=== PATIENT | female | born 1950 | race Caucasian/White ===

== ENCOUNTER 2021-03-12 09:36 | Emergency (ER) | payer MEDICARE ==
[~2021-03-12] VITALS: Ht 157.5 cm; Wt 68.0 kg
[2021-03-12 09:43] VITALS: BP 141/66
--- NOTE | 2021-03-12 09:47 | NUR ---
AT BEDSIDE FOR EVAL.
--- NOTE | 2021-03-12 10:11 | NUR ---
FLU[employer] REPLACER AT BEDSIDE FOR WALKING BOOT APPLICATION.
--- NOTE | 2021-03-12 10:24 | NUR ---
Patient discharged to home in stable condition. Written and verbal after care instructions given. Patient verbalizes understanding of instruction.
== END 2021-03-12 10:26 | disposition home or self-care (01) ==
LOC: ER 09:42
DX: S92.352A Displaced fracture of fifth metatarsal bone, left foot, initial encounter for closed fracture (principal); S00.83XA Contusion of other part of head, initial encounter; E78.00 Pure hypercholesterolemia, unspecified; Z88.1 Allergy status to other antibiotic agents; W01.0XXA Fall on same level from slipping, tripping and stumbling without subsequent striking against object, initial encounter; Y93.89 Activity, other specified; Y92.89 Other specified places as the place of occurrence of the external cause; Y99.8 Other external cause status
CPT/HCPCS: 73630-TC